=== PATIENT | male | born 1950 | race Caucasian/White ===

== ENCOUNTER → 2017-09-06 | Outpatient (CLI) | payer OTHER ==
[2017-09-07 13:31] LABS: Stool Occult Bld Immuno 1 Negative (NEGATIVE)
== END ==
LOC: LAB EV 08:00
PROVIDERS: Physician Assistant Medical
DX: Z12.11 Encounter for screening for malignant neoplasm of colon (principal); Z00.00 Encounter for general adult medical examination without abnormal findings; E29.1 Testicular hypofunction
CPT/HCPCS: G0328

== ENCOUNTER → 2018-07-06 | Outpatient (CLI) | payer OTHER | END | disposition home or self-care (01) | LOC: LAB SHORT 07:52 → PLD 07:52 | DX: L98.9 Disorder of the skin and subcutaneous tissue, unspecified (principal) | CPT/HCPCS: 88305 ==

== ENCOUNTER 2018-10-11 06:24 | Day surgery (SDC) | payer OTHER ==
[~2018-10-11] VITALS: Ht 188 cm; Wt 109.7 kg
[~2018-10-11 06:24] MED LIST: ALLO100 PO; EPINEPHRIN0.3 MG/0.3
== END 2018-10-11 08:40 | disposition home or self-care (01) ==
LOC: ORSCSDS 06:24
PROVIDERS: Surgery
PROC: 0JBM0ZZ Excision of Left Upper Leg Subcutaneous Tissue and Fascia, Open Approach (ICD-10-PCS; principal; 2018-10-11 07:30)
DX: D17.79 Benign lipomatous neoplasm of other sites (principal); I10 Essential (primary) hypertension; Z87.891 Personal history of nicotine dependence; Z79.899 Other long term (current) drug therapy
CPT/HCPCS: 88304; J2250; J3010

== ENCOUNTER 2018-12-03 09:52 | Emergency (ER) | payer OTHER ==
[~2018-12-03] VITALS: Ht 188 cm; Wt 108.9 kg
[2018-12-03 10:46] LABS: BASOPHILS ABSOLUTE AUTO 0.03 K/mm3 (0.00-0.23); BASOPHILS PERCENT AUTO 0 % (0-2); EOSINOPHILS ABSOLUTE AUTO 0.13 K/mm3 (0.00-0.68); EOSINOPHILS PERCENT AUTO 2 % (0-6); Hemoglobin 14.5 g/dL (13.5-17.5); IMMATURE GRAN ABSOLUTE AUTO 0.04 K/mm3 (0.00-0.10); IMMATURE GRAN PERCENT AUTO 1 % (0-1); LYMPHOCYTES ABSOLUTE AUTO 2.15 K/mm3 (0.84-5.20); LYMPHOCYTES PERCENT AUTO 32 % (21-46); MONOCYTES ABSOLUTE AUTO 0.52 K/mm3 (0.16-1.47); MONOCYTES PERCENT AUTO 8 % (4-13); Mean Corpuscular HGB 31.2 pg (26.0-34.0); Mean Corpuscular Volume 95 fL (80-100); Mean Platelet Volume 10.4 fL (9.1-12.4); NEUTROPHILS ABSOLUTE AUTO 3.81 K/mm3 (1.96-9.15); NEUTROPHILS PERCENT AUTO 57 % (41-73); Platelet Count 193 K/mm3 (150-400); RDW Coefficient Variation 12.3 % (11.7-14.2); RDW Standard Deviation 42.8 fL (35.1-46.3); Red Blood Cell Count 4.65 M/mm3 (4.30-5.90); White Blood Cell Count 6.68 K/mm3 (4.00-11.30)
[2018-12-03 11:02] LABS: Alanine Aminotransfer (ALT/SGP 33 U/L (12-78); Albumin/Globulin Ratio 1.2 (0.8-1.8); Alk Phos 57 U/L (50-136); Anion Gap 2 mmol/L (6-16); Aspartate Aminotrans (AST/SGOT 23 U/L (12-37); Bilirubin, Total 1.1 mg/dL (0.1-1.0); Blood Urea Nitrogen 12 mg/dL (8-24); Bun/Creatinine Ratio 16.1 (12.0-20.0); CO2, Blood 30 mmol/L (21-32); Calcium, Blood 9.3 mg/dL (8.5-10.1); Chloride, Blood 107 mmol/L (98-108); Creatinine, Blood 0.74 mg/dL (0.60-1.20); Globulin, Blood 3.3 g/dL (2.2-4.0); Glomerular Filtration Rate >60 (60-); Glucose, Blood 138 mg/dL (70-99); Potassium, Blood 4.4 mmol/L (3.5-5.5); Sodium, Blood 139 mmol/L (136-145); Total Protein, Blood 7.3 g/dL (6.4-8.2); Troponin I <0.015 ng/mL (0.000-0.040)
[2019-03-02] MEDS ORDERED: ROSU5 PO (14:19)
[2019-03-02] MEDS ORDERED: METO25ER (14:19)
[2019-03-02] MEDS ORDERED: Nitroglycerin0.4 MG SL (14:21)
[2019-03-02] MEDS ORDERED: Prinivil10 MG PO (14:22)
[2019-03-02] MEDS ORDERED: ASPI81CH PO (14:22)
== END 2018-12-03 13:02 | disposition home or self-care (01) ==
LOC: ER 09:52
PROVIDERS: Emergency Medicine
DX: R07.89 Other chest pain (principal); R42 Dizziness and giddiness; Z88.0 Allergy status to penicillin; Z91.030 Bee allergy status; Z88.2 Allergy status to sulfonamides; Z88.8 Allergy status to other drugs, medicaments and biological substances; Z79.899 Other long term (current) drug therapy; I10 Essential (primary) hypertension; Z87.891 Personal history of nicotine dependence
CPT/HCPCS: 36415; 71046; 80053; 83880; 84484; 85025; 93005; 93010; 96360; 99284-25; J7030

== ENCOUNTER 2019-03-03 07:56 | Day surgery (SDC) | payer OTHER ==
[~2019-03-03] VITALS: Ht 188 cm; Wt 107.0 kg
[~2019-03-03 07:56] MED LIST changes: +ASPI81CH PO; +METO25ER; +Nitroglycerin0.4 MG SL; +Prinivil10 MG PO; +ROSU5 PO
--- NOTE | 2019-03-03 09:19 | NUR ---
PT PREMEDICATED WITH SOLU-CORTEF 100MG IV, BENADRYL 25MG IV AND PEPCID 20MG IV ORDERED. FLUIDS INFUSING AT 125mL/HR ORDERED.
--- NOTE | 2019-03-03 11:31 | NUR ---
sBAR FROM Guillermina Christopher RN, Pt in recliner pt denies pain. Right radial wnl, right hand slightly numb. Pt sb, talking with . call light given. NS 600 prabhakar at 100/hr, infusing into left ac.
--- NOTE | 2019-03-03 12:53 | NUR ---
2 cc air removed from tr-band.
--- NOTE | 2019-03-03 12:58 | NUR ---
Two cc return to tr-band for bleeding. sbar to Paul Chaney RN.
--- NOTE | 2019-03-03 13:28 | NUR ---
RIGHT RADIAL SITE STABLE, SOFT NON-TENDER WITH NO HEMATOMA AND NO PULSATILE BLEEDING. PT SITTING IN RECLINER WITH CALL LIGHT IN REACH.
--- NOTE | 2019-03-03 13:50 | NUR ---
10 CC OF AIR REMOVED OUT OF NOW DEFLATED RIGHT TR BAND OVER 15 MIN. NO HEMATOMA AND NO PUSATILE BLEEDING; SOFT NON-TENDER.
--- NOTE | 2019-03-03 13:58 | NUR ---
NO CHANGES TO DEFLATED RIGHT TR BAND.
--- NOTE | 2019-03-03 14:06 | NUR ---
FULL REPORT PROVIDED GERARD RODRIGUEZ TO ASSUME CARE OF PT IN RECOVERY ROOM.
--- NOTE | 2019-03-03 15:03 | NUR ---
DISCHARGE PT REMAINED A&OX3 WHILE IN MY CARE AND DENIED ANY PAIN. R RADIAL SITE-TR BAND REMOVED AND REPLACED WITH A CLOTH DOT BANDAGE AND WHITE ARM BOARD. PT AND SPOUSE REFRESHED ON DISCHARGE EDUCAITON GIVEN BY ABBIE Auguste RN. PT AND SPOUSE VERBALLY DENIED ANY QUESTIONS IN REGUARDS TO THE DISCHARGE EDUCAITON. IV DC'D WITH CANULA IN TACT. PT ABULATED TO RESTROOM AND ABLE TO DRESS SELF WITH LITTLE HELP FROM SPOUSE. PT STATED HE WANTED TO WALK OUT AND NOT BE WHEELED OUT TO CAR.
== END 2019-03-03 15:20 | disposition home or self-care (01) ==
LOC: MHTC 07:56
PROC: B2111ZZ Fluoroscopy of Multiple Coronary Arteries using Low Osmolar Contrast (ICD-10-PCS; principal; 2019-03-03)
PROC: 4A023N7 Measurement of Cardiac Sampling and Pressure, Left Heart, Percutaneous Approach (ICD-10-PCS; principal; 2019-03-03)
DX: I25.110 Atherosclerotic heart disease of native coronary artery with unstable angina pectoris (principal); R94.39 Abnormal result of other cardiovascular function study; R06.02 Shortness of breath; I10 Essential (primary) hypertension; E78.5 Hyperlipidemia, unspecified; M10.9 Gout, unspecified; E88.81 Metabolic syndrome and other insulin resistance; Z79.82 Long term (current) use of aspirin; Z79.899 Other long term (current) drug therapy; Z87.891 Personal history of nicotine dependence; Z88.0 Allergy status to penicillin; Z91.041 Radiographic dye allergy status; Z91.030 Bee allergy status; Z88.2 Allergy status to sulfonamides
CPT/HCPCS: 93005; 93010; 93454; 99152; 99153; C1769; C1894; J1200; J1644; J1720; J2250; J3010; J7030; Q9967